=== PATIENT | female | born 1995 ===

== ENCOUNTER 2016-06-22 02:26 | Emergency (ER) | payer MEDICAID, OTHER ==
[2016-06-22] MEDS ORDERED: Morphine 4 MG/ML Syringe IM ONE (02:48)
[2016-06-22] MEDS ORDERED: traMADol 50 MG Tab PO ONE (02:51)
[2016-06-22 03:05] VITALS: BP 112/82
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
== END 2016-06-22 03:15 | disposition home or self-care (01) ==
LOC: FB.ED 02:26
DX: S21.212A Laceration without foreign body of left back wall of thorax without penetration into thoracic cavity, initial encounter (principal); W19.XXXA Unspecified fall, initial encounter
CPT/HCPCS: 12001; 99282; J2270; 96372; A9270-GY

== ENCOUNTER 2016-06-23 23:17 | Emergency (ER) | payer MEDICAID ==
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
[2016-06-24] MEDS ORDERED: Levofloxacin 250 MG Tab PO ONE (00:36)
[2016-06-24 02:12] VITALS: BP 114/69
== END 2016-06-24 00:59 | disposition home or self-care (01) ==
LOC: FB.ED 23:17
DX: N39.0 Urinary tract infection, site not specified (principal); Z79.899 Other long term (current) drug therapy
CPT/HCPCS: 80305; 81001; 81025; 87086; 99283; A9270